=== PATIENT | male | born 1970 | race Caucasian/White ===

== ENCOUNTER 2017-05-04 06:13 | Inpatient (IN) ==
[2017-05-04] MEDS ORDERED: Lidocaine -MPF 1% 2 ML VIAL ID ONE (06:41)
[2017-05-04] MEDS ORDERED: Ertapenem 1,000 MG in Water for inj. (sterile) 10 ML IVP ONE (06:42)
[2017-05-04] MEDS ORDERED: Ringers Solution, Lactated 1,000 ML IVC SCH (06:45)
--- NOTE | 2017-05-04 06:45 | History & Physical Report ---
Date of Encounter: 05/04/17 Time of Encounter: 06:42 24 Hour HP Update - Instructions Instructions: If the History and Physical is less than 30 days old and was completed prior to A.M. admission and or procedure and has NOT been updated on calendar day of procedure please complete this update prior to performing procedure. - Update Patient reports changes in Medical Condition: No Changes in examination, assessment, or condition: No Changes in Medication: No Preop tests/diagnostics Reviewed: Yes Surgery Remains Indicated: Yes Consent for Planned Operative Procedure(s) Verified: Yes Review of Patient reveals the following changes:: plan to place ureteral stents for Dr Rudd surgery. procedure discussed including risks. all questions answered and consent signed. - Pre-Operative Checklist Preoperative Checklist Indicated: Yes Prophylactic Antibiotic Ordered: Yes Home Medications Include Beta Tiki: No Beta Tiki Taken Today (Day of Surgery): No Beta Tiki Taken Yesterday (Day Prior to Surgery): No Is VTE Prophylaxis Indicated?: Yes
[2017-05-04] MEDS ORDERED: *HR* Phenylephrine 10 MG/ML VIAL ONE (06:55)
[2017-05-04] MEDS ORDERED: *HR* Rocuronium Bromide 50 MG/5 ML VIAL ONE ×2 (06:55→10:08)
[2017-05-04] MEDS ORDERED: *HR* Succinylcholine 200 MG/10 ML VIAL IVP ONE (06:55)
[2017-05-04] MEDS ORDERED: Lidocaine -MPF 2% 2 ML VIAL ONE (06:55)
[2017-05-04] MEDS ORDERED: *HR* Propofol 200 MG/20 ML VIAL IVP ONE (06:56)
[2017-05-04] MEDS ORDERED: *HR* Midazolam HCl 2 MG/2 ML VIAL ONE (06:56)
[2017-05-04] MEDS ORDERED: *HR* FentaNYL (PF) 100 MCG/2 ML VIAL ONE (06:56)
[2017-05-04] MEDS ORDERED: Acetaminophen IV 1,000 MG/100 ML INFUS..BTL IVPB ONE (07:05)
[2017-05-04] MEDS ORDERED: Gabapentin 300 MG CAPSULE PO ONE (07:05)
[2017-05-04] MEDS ORDERED: Famotidine 20 MG/2 ML VIAL IVP ONE (07:05)
--- NOTE | 2017-05-04 07:08 | Anesthesia Evaluation PreOp ---
Date of Encounter: 05/04/17 Time of Encounter: 07:00 - Past History Planned Operation: Sigmoid Colectomy Cardiac History: Hyperlipidemia Pulmonary History: Denies Any Significant HX VIDEO TAPE EDITOR History: Denies Any Significant HX Other Medical History: GERD, Other (Obese) Anesthesia History: No Prior Anesthetic Complications Alcohol Use: occasionally Drug use: none Medications and Allergies No Known Home Drugs 05/04/17 [History] 3 Allergy/AdvReac Type Severity Reaction Status Date / Time ciprofloxacin [From Cipro] Allergy Hives Verified 05/04/17 06:50 metronidazole [From Flagyl] Allergy Hives Verified 05/04/17 06:50 - Meds/Allergy Pre-op Review Medications Reviewed: Yes Allergies Reviewed: Yes Beta Blockers on Current Med List: No Anesthesia Results - Labs Laboratory Tests 04/27/17 04/27/17 10:50 10:50 Hgb 14.6 Hct 44.9 Plt Count 251 Sodium 136 Potassium 4.5 BUN 17 Creatinine 0.97 Anesthesia Exam O2 Sat Height 1.75 m Height 1.75 m Height 1.75 m Weight 116.12 kg Weight 116.12 kg Weight 116.12 kg O2 Sat by Pulse Oximetry 97 Vital Signs Temp Pulse Resp BP Pulse Ox 97.9 F 72 18 138/84 97 05/04/17 06:31 05/04/17 06:31 05/04/17 06:31 05/04/17 06:31 05/04/17 06:31 Height: 5'9 Weight: 256 lbs NPO (# of Hours): MN Pain Scale: 0 - HEENT Pupil (Motor): Pupils equal, EOMI Mallampati: II Teeth: Normal Oral Opening: Greater than 3 - VIDEO TAPE EDITOR LOC: Oriented VIDEO TAPE EDITOR Motor: Normal RUE, Normal LUE, Normal RLE, Normal LLE, Normal Face VIDEO TAPE EDITOR Sensory: Normal: RUE, LUE, RLE, LLE, Face - Cardiac Rhythm: Regular Murmur: None JVD: No Carotid Bruit: No - Pulmonary Breath Sounds: bilateral Clear Respiratory Effort: Symmetrical Anesthesia Assess/Plan ASA Score: 2 Modified Hemingway Scale for Level of Consciousness: Cooperative, oriented, and tranquil Anesthetic Plan: General, Regional Monitoring Plan: Standard Monitors Recovery Plan: PACU (Discussed GA, possible Epidural for post op pain control, agrees to proceed)
[2017-05-04] MEDS ORDERED: Ketamine *HR* 500 MG/10 ML MDV ONE (07:10)
[2017-05-04] MEDS ORDERED: ROPIVACAINE HCL/PF 0.5% 30 ML VIAL ONE (07:28)
--- NOTE | 2017-05-04 07:31 | History & Physical Report ---
Date of Encounter: 05/04/17 Time of Encounter: 07:25 24 Hour HP Update - Instructions Instructions: If the History and Physical is less than 30 days old and was completed prior to A.M. admission and or procedure and has NOT been updated on calendar day of procedure please complete this update prior to performing procedure. - Update Patient reports changes in Medical Condition: No Changes in examination, assessment, or condition: No Changes in Medication: No Preop tests/diagnostics Reviewed: Yes Surgery Remains Indicated: Yes Consent for Planned Operative Procedure(s) Verified: Yes - Pre-Operative Checklist Preoperative Checklist Indicated: Yes Prophylactic Antibiotic Ordered: Yes Home Medications Include Beta Tiki: No Beta Tiki Taken Today (Day of Surgery): No Beta Tiki Taken Yesterday (Day Prior to Surgery): No Is VTE Prophylaxis Indicated?: Yes
[2017-05-04] MEDS ORDERED: Ropivacaine/PF 0.2% 500 MG/250 ML INFUS..BTL EP SCH (08:15)
[2017-05-04] MEDS ORDERED: ROPIVACAINE EP SCH (08:30)
[2017-05-04] MEDS ORDERED: INFUS EP SCH (08:30)
--- NOTE | 2017-05-04 09:05 | Anesthesia Procedures ---
Date of Encounter: 05/04/17 Time of Encounter: 07:40 Procedures: Anesthesia - Epidural/Spinal Patient ID/Chart reviewed: Yes Patient examined: Yes Consent Obtained: Yes Supplemental Oxygen: Nasal Cannula Supplemental Oxygen Rate (L/min): 2 Sedation: Versed (mg): 2 Site Prep: Aseptic Technique, Sterile prep and drape, 0.5% Chlorhexidine/Alcohol Patient position: upright Local Anesthetic: Lidocaine 1% Amount of Local Anesthetic used: 4 Touhy Needle Gauge: 18 Touhy Needle Depth (cm): 8 Catheter Depth at Skin (cm): 16 Test Dose (1.5% Lido + Epi): Volume given (mls): 5 Test Dose Result: Negative Loading Dose: Other: Ropivacaine 0.2% 5mL Loading Dose Administered: Thru Catheter Catheter Secured in Place: Tegaderm Interspace Used: Other (L1-2) Blood: No CSF: No Paresthesia: No Procedure: Attempt at L2-3. ALETHEA at 8cm. Catheter advanced and blood noted in tubing. 4mL Test dose - Heart rate increase from 83 to 104. Catheter removed and replaced at L1-2. Vitals + FHT's: VSS throughout.
[2017-05-04] MEDS ORDERED: *HR* Magnesium Sulfate 1 GM/2 ML VIAL ONE (09:08)
[2017-05-04] MEDS ORDERED: Ondansetron 4 MG/2 ML VIAL ONE (09:08)
[2017-05-04] MEDS ORDERED: Dexamethasone 4 MG/ML VIAL ONE (09:08)
[2017-05-04] MEDS ORDERED: EPHEDrine 50 MG/ML VIAL ONE (09:09)
[2017-05-04] MEDS ORDERED: *HR* Promethazine 25 MG/ML VIAL IVP PRN (09:15)
[2017-05-04] MEDS ORDERED: *HR* Meperidine 25 MG/ML SYRINGE IVP PRN (09:15)
[2017-05-04] MEDS ORDERED: Ondansetron 4 MG/2 ML VIAL IVP PRN (09:15)
[2017-05-04] MEDS ORDERED: *HR* HYDROmorphone (PF) 1 MG/ML SYRINGE IVP PRN (09:15)
[2017-05-04] MEDS ORDERED: Naloxone 0.4 MG/ML INJ IVP PRN (09:15)
--- NOTE | 2017-05-04 09:16 | Operative Note ---
Date of procedure: 05/04/17 Pre-op diagnosis: need for a ureteral stent for sigmoidectomy Procedure: cystoscopy with placement of ureteral stent - left. Anesthesia: FRANCOA Surgeon: Sawyer Hahn Estimated blood loss (cc): 0 Specimen: none Condition: stable Disposition: PACU Procedure in Detail: PROCEDURE IN DETAIL: Patient was taken back to the operating room, positioned supine on the operating table. Anesthesia was applied without complication. They were moved into dorsal lithotomy. Careful attention was maintained to cushion all pressure points for patient's safety. They were prepped and draped in sterile fashion. Time-out was performed with the proper patient and procedure. A 21-Andorran rigid cystoscope was inserted into the bladder without difficulty. Systematic examination of bladder revealed no abnormalities. The ureteral orifice was cannulated using a 5-Andorran ureteral Catheter and passed up the ureter without resistance. Hightower was placed after removal of the scope. ureteral cath adaptor was placed to connect to the ureteral cath to the hightower.
[2017-05-04] MEDS ORDERED: Neostigmine Methylsulfate 3 MG/3 ML SYRINGE ONE (10:08)
--- NOTE | 2017-05-04 11:34 | Operative Note ---
Date of procedure: 05/04/17 Pre-op diagnosis: recurrent sigmoid diverticulitis Post-op diagnosis: same Procedure: sigmoid colectomy with stapled colo colonic anastomosis, intra operative rigid sigmoidoscopy, incidental appendectomy, Meckel's Diverticulectomy Complications: none apparent Anesthesia: KENNEDI Surgeon: Regan Degroot Physical Metallurgist Other: LUIS Taylor Estimated blood loss (cc): 100 IV fluids (cc): 1,600 Specimen: sigmoid colon, anastomotic rings, appendix and Meckel diverticulum Condition: stable Disposition: PACU Procedure in Detail: Brief history: 46-year-old male presents today for sigmoid colectomy to address recurrent episodes of sigmoid diverticulitis. The patient presented in acute distress, August 2016, due to acute sigmoid diverticulitis with radiologic evidence of a microperforation and contained pericolic abscess. The patient responded nicely to IV antibiotics which were continued once patient was discharged home home in oral form. Recommendations to consider surgical resection approximately 6 weeks post presentation were were not follow-through. Patient had several episodes of acute diverticulitis in January and February prompting the patient to seek medical and surgical attention. The patient is currently in no acute distress the most recent episode of acute sigmoid diverticulitis appeared to be resolved with antibiotic therapy. Due to this history of recurrent diverticulitis I consulted, Dr Sawyer Hahn, [facility], to place ureteral stents prior to the planned sigmoid resection. I also consulted [facility] for rhoda operative placement epidural catheter. Technique: The patient was brought to the operating room where he was placed supine upon the operating room table. An epidural catheter had been established by [facility] prior to transport of the patient to the OR. The patient was appropriately identified as to person and procedures. The accuracy of this information was confirmed by the procedure team. The patient was then intubated and anesthetized under the supervision of Dr. Gregorio Hardy. Cystoscopy with ureteral stent placement was completed by Dr. Sawyer Hahn. That procedure is available for review in a separate operative report. The patient's position was modified to low lithotomy. The perineum and buttocks were prepped with Betadine. The abdomen prepped with chlorhexidine. Sterile drapes were applied in the usual fashion. The patient was again identified as to person and procedure. A midline incision was made from just above the umbilicus to the pubis. The incision was extended to the fascia. Bleeding points were controlled electrocautery. The fascia was then incised. The abdomen entered atraumatically. Exposure was facilitated by a self-retaining Omni tract retractor. The small bowel was retracted cephalad. The sigmoid colon demonstrated diffuse thickening but no acute inflammation or pericolic abscess. Lateral peritoneal reflection was incised allowing the bowel to be mobilized medially. Dissection was carried into the pelvis where the bowel was transected with the aid of an Ethicon Contour curved cutter stapler. The mesentery was divided with the aid of the Click4Ride Impact Harmonic dissector. Dissection was carried proximally to the distal descending colon where the bowel appeared to be free of any diverticulosis. The bowel was skeletonized and then divided with an Ethicon pursestring device. The sigmoid colon was removed from the field. EEA sounds were used to measure the bowel allowing me to select a Ethicon EEA 29 mm ECS stapler to complete the colocolonic anastomosis. There was enough redundancy in the sigmoid colon that minimal mobilization of the descending colon was necessary to complete a tension-free anastomosis. The 29 mm anvil was placed within the distal descending colon. The pursestring secured. The 29 EEA sounds was again used to measure the Jackie pouch to assure appropriate length for trans-anal stapling. The Ethicon EEA stapler was then inserted rectally and advanced to the staple line of the Jackie pouch. The spike was deployed and the anvil placed on the spike. The stapled colocolonic anastomosis was completed with 2 intact rings removed from the EEA stapler. The pelvis was filled with saline and a rigid sigmoidoscopy completed. The colocolonic anastomosis appeared visually intact and when insufflated with air and no obvious "string of bubbles" was evident within the pelvic fluid. Insufflated air was evacuated and the scope removed. The pelvic fluid was evacuated with a suction device. The surgeon was regowned and gloved to complete the ansa abdominal surgery. The cecum was examined demonstrating a small uninflamed appendix. The mesoappendix was divided with the aid of the Click4Ride Impact Harmonic dissector. The appendix was divided at its junction with the cecum using an Ethicon TX 30 mm stapler (blue cartridge). The appendix was removed from the surgical field. The small bowel was examined from the ileocecal valve to the ligament of Treitz. A Meckel's diverticulum was encountered. Was no acute inflammation, however, several small cysts were evident on the serosa. I opted to transect this lesion using the Ethicon TX 30 mm stapler, again using a blue cartridge. The staple was applied transverse to the long axis of the small bowel. A Meckel's diverticulum was resected. Liver, stomach, spleen appeared grossly normal. Whether abnormalities were detected. Hemostasis appeared to be adequate. The staple lines related to the Meckel's diverticulectomy and the appendectomy were intact. Closure was then accomplished in layers. The peritoneum was closed with a running interlocking 0 Vicryl. The fascia was closed in the midline using interrupted [id number] 0 Vicryl. the subcutaneous tissue was approximated with running 3-0 Vicryl. The skin edges approximated with cyril. A dry sterile dressing was applied. The ureteral stent was removed. Zapata was left in situ. A dry sterile dressing was applied. The patient was taken to recovery. Needle, sponge, and instrument counts were correct at the close of the case. Specimens submitted to pathology: #1 - sigmoid colon and anastomotic rings with the proximal anastomotic ring marked with a silk suture; #2 - the appendix and Meckel's diverticulum. The Meckel's diverticulum was tagged with a silk suture.
[2017-05-04] MEDS ORDERED: Ringers Solution, Lactated 500 ML IVC ONE (11:38)
--- NOTE | 2017-05-04 12:26 | Anesthesia Evaluation Post Op ---
Date of Encounter: 05/04/17 Time of Encounter: 11:30 - Vital Signs Vital Signs: Vital Signs/O2 Sat/Glucose, Most Current Temp Pulse Resp BP Pulse Ox 05/04/17 12:17 71 18 131/91 94 05/04/17 12:07 97.5 F L 77 15 141/83 94 05/04/17 11:57 66 17 140/83 96 05/04/17 11:47 70 17 134/82 96 05/04/17 11:37 98.0 F 74 18 137/87 96 - Lungs Lungs: Clear Ascult./Percussion - Airway Airway: Non-obstructed - Cardiovascular Regular Rate - Mental Status Mental Status: Alert & Oriented, Answers Appropriately - Pain Pain Scale: 0 - Nausea Vomiting Nausea Vomiting: Not Present - Hydration Hydration: Ice chips - Discharge PostOp Status: Transfer Patient to floor
[2017-05-04] MEDS: ROPIVACAINE EP SCH (15:47)
[2017-05-04] MEDS: Ringers Solution, Lactated 1,000 ML IVC SCH ×2 (15:47→23:05)
[2017-05-04] MEDS: INFUS EP SCH (15:47)
[2017-05-04] MEDS ORDERED: *HR* Morphine 2 MG/ML SYRINGE IVP PRN (17:51)
[2017-05-05] MEDS: *HR* HYDROmorphone (PF) 1 MG/ML SYRINGE IVP PRN ×8 (01:52→22:37)
[2017-05-05 05:51] LABS: Basophils % 0.3 %; Hematocrit 40.8 % (37.5-50.1); Hemoglobin 13.3 g/dL (12.9-16.9); Immature Granulocytes % 0.3 % (0-4); Lymphocytes # 1.5 K/mcL (0.6-4.6); Lymphocytes % 16.9 %; Mean Corpuscular HGB Conc 32.6 g/dL (31.6-35.5); Mean Corpuscular Hemoglobin 28.9 pg (28.0-33.3); Mean Corpuscular Volume 88.5 fL (83.0-100.0); Mean Platelet Volume 10.6 fL (9.4-12.4); Monocytes # 0.7 K/mcL (0.0-1.3); Monocytes % 7.5 %; Neutrophils # 6.5 K/mcL (1.6-8.9); Platelet Count 238 K/mcL (140-400); Red Blood Count 4.61 M/mcL (4.19-5.50); Red Cell Distribution Width 13.7 % (11.5-14.5)
[2017-05-05 05:56] LABS: BUN/Creatinine Ratio 17 (6-26); Blood Urea Nitrogen 20 mg/dL (8-26); Calcium 8.5 mg/dL (8.6-10.8); Carbon Dioxide 23 mEq/L (19-29); Chloride 104 mEq/L (98-109); Glucose 113 mg/dL (70-99); Osmolality,Calculated 291 (280-300); Potassium 4.3 mEq/L (3.5-4.5); Sodium 139 mEq/L (136-145); eGFR For African Americans > 60 (> 60); eGFR For Non-African Americans > 60 (> 60)
[2017-05-05] MEDS: Ringers Solution, Lactated 1,000 ML IVC SCH (08:16)
--- NOTE | 2017-05-05 11:53 | General Surgery Progress Note ---
Date of Encounter: 05/05/17 Time of Encounter: 11:45 Subjective Narrative: General Surgery - POD #1 patient c/o pain not relieved / controlled by epidural. Morphine ineffective for breakthrough pain, Dilaudid providing some relief. no N/V. Afebrile, currently 98.9, pulse 88, respirations 16, blood pressure 140/84. Lungs: Clear to auscultation though inspiratory effort reduced due to abdominal pain Cardiac: Regular rate, no appreciable murmurs Abdomen: Soft, quiet; midline incision clean and dry. Extremities: 1+ pitting edema all 4 extremities; no appreciable clubbing or cyanosis. Urine output: 775 mL so far today; slight hematuria, most likely due to cystoscopy and ureteral stent placement preoperatively Labs: White count 8.6, hemoglobin 13.3, hematocrit 40.8; platelet count 238,000 ; differential within normal limits Electrolytes, BUN, creatinine within normal limits Pathology: Pending Impression: Postoperative day 1; status post sigmoid colectomy with stapled colocolonic anastomosis, intraoperative rigid sigmoidoscopy, incidental appendectomy and Meckel's diverticulectomy. Acceptable postoperative status. Insufficient pain control per epidural. Discussed with Dr Hdz, the epidural dosing will be adjusted. Zapata catheter necessary for anticipated bladder dysfunction due to the epidural analgesia. Plan: Continue incentive spirometry; encourage deep breathing and coughing Encourage activity out of bed Allow ice chips sparingly Maintain Zapata until epidural discontinued; continue to monitor I's and O's Anesthesia to adjust epidural dosing Increase Dilaudid for breakthrough pain per my discussion with Dr Hdz Objective Vital Signs - Last 8 Hours Temp Pulse Resp BP Pulse Ox 05/05/17 08:03 98.6 F 79 18 125/84 90 Intake and Output 05/04/17 05/05/17 05/05/17 23:59 07:59 15:59 Intake Total 1000 / 1000 0 / 0 1000 / 1000 Output Total 0 / 0 450 / 450 325 / 325 Balance 1000 / 1000 -450 / -450 675 / 675 Intake: IV Fluids 1000 / 1000 1000 / 1000 Lactated Ringers 1,000 ML @ 100 1000 / 1000 1000 / 1000 mls/hr IVC .Q10H [facility] Rx#: [id number] Oral 0 / 0 0 / 0 Output: Catheter 0 / 0 450 / 450 325 / 325 Other: Meal Dinner NPO NPO Blood Glucose* 118 118 - Labs 05/05/17 04:55 05/05/17 04:55 Diabetes panel 05/05/17 Range/Units 04:55 Sodium 139 (136-145) mEq/L Potassium 4.3 (3.5-4.5) mEq/L Chloride 104 (98-109) mEq/L Carbon Dioxide 23 (19-29) mEq/L BUN 20 (8-26) mg/dL Creatinine 1.15 (0.72-1.25) mg/dL Glucose 113 H (70-99) mg/dL Calcium 8.5 L (8.6-10.8) mg/dL Calcium panel 05/05/17 Range/Units 04:55 Calcium 8.5 L (8.6-10.8) mg/dL Pituitary panel 05/05/17 Range/Units 04:55 Sodium 139 (136-145) mEq/L Potassium 4.3 (3.5-4.5) mEq/L Chloride 104 (98-109) mEq/L Carbon Dioxide 23 (19-29) mEq/L BUN 20 (8-26) mg/dL Creatinine 1.15 (0.72-1.25) mg/dL Glucose 113 H (70-99) mg/dL Calcium 8.5 L (8.6-10.8) mg/dL Adrenal panel 05/05/17 Range/Units 04:55 Sodium 139 (136-145) mEq/L Potassium 4.3 (3.5-4.5) mEq/L Chloride 104 (98-109) mEq/L Carbon Dioxide 23 (19-29) mEq/L BUN 20 (8-26) mg/dL Creatinine 1.15 (0.72-1.25) mg/dL Glucose 113 H (70-99) mg/dL Calcium 8.5 L (8.6-10.8) mg/dL - VTE Documentation of Mechanical Device: Intermittent pneumatic compression device Consult Discharge Plan - Plan Referrals: NONE,PCP [Primary Care Provider] -
[2017-05-05] MEDS: D5% in 0.45% NACL 1,000 ML IVC SCH ×2 (12:39→23:41)
[2017-05-05] MEDS: Pantoprazole 40 MG VIAL IVP SCH (12:41)
[2017-05-05] MEDS: INFUS EP SCH (12:47)
[2017-05-05] MEDS: ROPIVACAINE EP SCH (12:47)
--- NOTE | 2017-05-05 15:20 | Anesthesia Progress Note ---
Date of Encounter: 05/05/17 Time of Encounter: 11:00 Anesthesia Note - Note Note: 05/05/17 15:19 POD 1 S/P Colectomy.Patient complain increase pain this am.VSS. Will increase rate to 8 cc/hr
[2017-05-06] MEDS: *HR* HYDROmorphone (PF) 1 MG/ML SYRINGE IVP PRN ×8 (06:20→20:09)
[2017-05-06] MEDS: Pantoprazole 40 MG VIAL IVP SCH (08:07)
[2017-05-06] MEDS: D5% in 0.45% NACL 1,000 ML IVC SCH ×2 (10:29→20:39)
--- NOTE | 2017-05-06 10:41 | General Surgery Progress Note ---
Date of Encounter: 05/06/17 Time of Encounter: 10:34 Subjective Patient reports: feels better, pain is less Narrative: General Surgery - POD #2 patient feeling better, pain controlled with epidural after Anesthesia adjusted dose. Has required Dilaudid for breakthru pain but significantly less frequently than in the 1st 24 hours Maximum temperature 100.0 through the night - most likely related to inactivity and the patient has been very slow to mobilize and has not been diligent using his spirometer. Pulse 89, respirations 16, blood pressure stable at 143/82. SPO2 on 2 L per nasal cannula at 92-93% Lungs: Clear to auscultation; patient able to inspire deeply without significant abdominal pain Cardiac: Regular rate, no appreciable murmur Abdomen: Slightly distended, active bowel sounds. Patient reports some crampy abdominal pain. No flatus or BM yet Midline incision clean and dry. Urine output 1275 for 05/05/17; 300 mL so far today Impression: Postoperative day 2, status post open sigmoid colectomy with stapled colo colonic anastomosis; intraoperative rigid sigmoidoscopy with incidental appendectomy and Meckel's diverticulectomy. Acceptable postoperative status. Pathology still pending Plan: Encourage activity at a bed Encourage incentive spirometry, coughing and deep breathing Continue epidural, Dilaudid for breakthrough pain Maintain Zapata for duration of the epidural analgesia due to anticipated malfunction of the urinary bladder related to the epidural analgesia. Maintain nothing by mouth with ice chips sparingly until bowel activity improves Check labs in a.m. Objective Vital Signs - Last 8 Hours Temp Pulse Resp BP Pulse Ox 05/06/17 06:51 98.7 F 89 16 143/82 93 05/06/17 03:40 99.6 F 90 18 134/90 92 Intake and Output 05/05/17 05/06/17 05/06/17 23:59 07:59 15:59 Intake Total 1000 / 1000 0 / 0 1000 / 1000 Output Total 500 / 500 300 / 300 Balance 500 / 500 -300 / -300 1000 / 1000 Intake: IV Fluids 1000 / 1000 1000 / 1000 D5% And 0.45% Nacl 1000 Ml Bag 1000 / 1000 1000 / 1000 1,000 ML @ 75 mls/hr IVC . [id number] [facility] Rx#:[id number] Oral 0 / 0 0 / 0 Output: Catheter 500 / 500 300 / 300 Other: Meal NPO # Voids 0 # Bowel Movements 0 Blood Glucose* 115 102 - Labs 05/05/17 04:55 05/05/17 04:55 - VTE Documentation of Mechanical Device: Intermittent pneumatic compression device Consult Discharge Plan - Plan Referrals: NONE,PCP [Primary Care Provider] -
[2017-05-06] MEDS: Ropivacaine/PF 0.2% 200 MG/100 ML INFUS..BTL EP SCH (12:13)
[2017-05-07] MEDS: *HR* HYDROmorphone (PF) 1 MG/ML SYRINGE IVP PRN ×5 (00:34→23:36)
[2017-05-07] MEDS: Ropivacaine/PF 0.2% 200 MG/100 ML INFUS..BTL EP SCH (02:49)
[2017-05-07 06:40] LABS: Basophils % 0.4 %; Eosinophils # 0.2 K/mcL (0.0-0.6); Eosinophils % 3.6 %; Hematocrit 36.8 % (37.5-50.1); Hemoglobin 12.1 g/dL (12.9-16.9); Immature Granulocytes % 0.3 % (0-4); Lymphocytes # 1.4 K/mcL (0.6-4.6); Mean Corpuscular HGB Conc 32.9 g/dL (31.6-35.5); Mean Corpuscular Hemoglobin 29.4 pg (28.0-33.3); Mean Corpuscular Volume 89.5 fL (83.0-100.0); Mean Platelet Volume 10.4 fL (9.4-12.4); Monocytes # 0.5 K/mcL (0.0-1.3); Neutrophils # 4.6 K/mcL (1.6-8.9); Platelet Count 166 K/mcL (140-400); Red Blood Count 4.11 M/mcL (4.19-5.50); Red Cell Distribution Width 13.3 % (11.5-14.5); Segmented Neutrophils % 67.7 %
[2017-05-07 06:47] LABS: BUN/Creatinine Ratio 15 (6-26); Blood Urea Nitrogen 13 mg/dL (8-26); Calcium 8.1 mg/dL (8.6-10.8); Carbon Dioxide 23 mEq/L (19-29); Chloride 103 mEq/L (98-109); Glucose 98 mg/dL (70-99); Osmolality,Calculated 284 (280-300); Potassium 3.9 mEq/L (3.5-4.5); Sodium 137 mEq/L (136-145); eGFR For African Americans > 60 (> 60); eGFR For Non-African Americans > 60 (> 60)
[2017-05-07] MEDS: Pantoprazole 40 MG VIAL IVP SCH (08:57)
[2017-05-07] MEDS: D5% in 0.45% NACL 1,000 ML IVC SCH (10:10)
[2017-05-07] MEDS ORDERED: Acetaminophen 325 MG TABLET PO PRN (10:43)
[2017-05-07] MEDS ORDERED: D5% in 0.45% NACL 1,000 ML IVC SCH (10:43)
--- NOTE | 2017-05-07 10:51 | Anesthesia Procedures ---
Date of Encounter: 05/07/17 Time of Encounter: 10:51 Procedures: Anesthesia - Epidural Rounding Post Op Day #: 3 Procedure: colectomy Pain Control: Adequate Breakthrough Pain Meds: Yes Vital Signs: Selected Entries 05/07/17 08:05 Temperature 98.9 F Pulse Rate 84 Respiratory Rate 18 Blood Pressure 147/84 O2 Sat by Pulse Oximetry 93 Mental Status: awake, alert, responsive Catheter Site Dressing Intact: Yes Erythema: No Pruritus: not present Signs of Infection At Catheter Site: No Plan: Remove Epidural Catheter (Epidural dc'd, Dr Degroot to rx pain meds) Epidural Catheter removed; Tip Intact: Yes (Dr Degroot contacted me and wanted epidural DC'd. )
--- NOTE | 2017-05-07 10:52 | General Surgery Progress Note ---
Date of Encounter: 05/07/17 Time of Encounter: 10:35 Subjective Patient reports: feels better, no flatus, no bowel movement Narrative: General Surgery - POD #3 Patient feeling better; describes adequate pain relief. No flatus or BM however patient describes cramping abdominal pain and audible bowel sounds Afebrile, 98.9; pulse 84, respirations 18, blood pressure 147/84 Lungs: Clear, better inspiratory effort; no abdominal pain with deep inspiration Abdomen: Slightly distended with active bowel sounds. Minimal persistent tenderness as expected 3 days post open exploratory celiotomy. Incision clean and dry. Urine output approximately 1100 ML last 24 hours Extremities: 1+ edema bilateral upper extremities - most likely due to IV fluids; expected to resolve as patient returns to baseline and IV fluids are diminished Pathology: Diverticulosis and acute diverticulitis with focal microabscess formation; pericolic lymph nodes showing no significant pathologic changes Appendix with fibrous obliteration Meckel's diverticulum - no obvious pathology described Laboratories: White count 6.8, hemoglobin 12.1 with hematocrit 36.8; platelet count 166,000 Electrolytes, BUN, creatinine within normal limits. Impression: Postoperative day 3: Status post exploratory ciliotomy sigmoid colectomy with stapled colocolonic anastomosis; intraoperative rigid sigmoidoscopy; incidental appendectomy and Meckel's diverticulectomy. Acceptable postoperative status. Plan: Epidural to be removed today Once epidural removed, discontinue Zapata, initiate VTE prophylaxis Initiate Tylenol 650 mg by mouth every 6 hours as needed for pain, Percocet 5/325 every 4 hours as needed for pain not relieved by Tylenol, and maintain Dilaudid 1 mg IV as needed for breakthrough pain Continue to encourage incentive spirometry and activity bed Objective Vital Signs - Last 8 Hours Temp Pulse Resp BP Pulse Ox 05/07/17 08:05 98.9 F 84 18 147/84 93 05/07/17 04:37 98.7 F 83 17 133/88 92 Intake and Output 05/06/17 05/07/17 05/07/17 23:59 07:59 15:59 Intake Total 1000 / 1000 1000 / 1000 Output Total 400 / 400 600 / 600 250 / 250 Balance 600 / 600 -600 / -600 750 / 750 Intake: IV Fluids 1000 / 1000 1000 / 1000 D5% And 0.45% Nacl 1000 Ml Bag 1000 / 1000 1000 / 1000 1,000 ML @ 75 mls/hr IVC . [id number] [facility] Rx#:[id number] Oral 0 / 0 Output: Urine 400 / 400 350 / 350 Catheter 250 / 250 250 / 250 Other: Meal NPO NPO Percent of Meal Consumed 0% Weight 116.7 kg Blood Glucose* 85 103 Patient Weight 05/07/17 23:59 Weight 116.7 kg - Labs 05/07/17 05:35 05/07/17 05:35 Diabetes panel 05/07/17 Range/Units 05:35 Sodium 137 (136-145) mEq/L Potassium 3.9 (3.5-4.5) mEq/L Chloride 103 (98-109) mEq/L Carbon Dioxide 23 (19-29) mEq/L BUN 13 (8-26) mg/dL Creatinine 0.85 (0.72-1.25) mg/dL Glucose 98 (70-99) mg/dL Calcium 8.1 L (8.6-10.8) mg/dL Calcium panel 05/07/17 Range/Units 05:35 Calcium 8.1 L (8.6-10.8) mg/dL Pituitary panel 05/07/17 Range/Units 05:35 Sodium 137 (136-145) mEq/L Potassium 3.9 (3.5-4.5) mEq/L Chloride 103 (98-109) mEq/L Carbon Dioxide 23 (19-29) mEq/L BUN 13 (8-26) mg/dL Creatinine 0.85 (0.72-1.25) mg/dL Glucose 98 (70-99) mg/dL Calcium 8.1 L (8.6-10.8) mg/dL Adrenal panel 05/07/17 Range/Units 05:35 Sodium 137 (136-145) mEq/L Potassium 3.9 (3.5-4.5) mEq/L Chloride 103 (98-109) mEq/L Carbon Dioxide 23 (19-29) mEq/L BUN 13 (8-26) mg/dL Creatinine 0.85 (0.72-1.25) mg/dL Glucose 98 (70-99) mg/dL Calcium 8.1 L (8.6-10.8) mg/dL - VTE Documentation of Mechanical Device: Intermittent pneumatic compression device Consult Discharge Plan - Plan Referrals: Regan Degroot MD [Non-Partnered Physician] -
[2017-05-07] MEDS: *HR* OxyCODONE/APAP 5/325 TABLET PO PRN ×2 (11:15→16:49)
[2017-05-07] MEDS: *HR* Heparin 5,000 UNIT/ML VIAL SQ SCH ×2 (13:53→23:37)
[2017-05-08] MEDS: *HR* OxyCODONE/APAP 5/325 TABLET PO PRN ×2 (04:06→09:01)
[2017-05-08] MEDS: *HR* Heparin 5,000 UNIT/ML VIAL SQ SCH ×3 (05:30→22:03)
[2017-05-08] MEDS: Pantoprazole 40 MG VIAL IVP SCH (09:01)
[2017-05-08] MEDS ORDERED: *HR* OxyCODONE/APAP 10/325 TABLET PO PRN (11:01)
--- NOTE | 2017-05-08 11:13 | General Surgery Progress Note ---
Date of Encounter: 05/08/17 Time of Encounter: 11:04 Subjective Patient reports: feels better, flatus Narrative: General Surgery - POD#4 Patient feeling well, still has pain, it is partially controlled with Percocet 5/325 Maximum Temp 99.1; pulse 80, respirations 18, blood pressure 126/77. SPO2 on room air 94 Lungs: Clear; no obvious pain in deep inspiration Cardiac: Regular rate, no appreciable murmurs Abdomen: Distended with minimal tenderness; active bowel sounds. Midline incision clean and dry patient has passed flatus extremities: The upper extremity edema has diminished with decreased IV fluids Urine output: Approximately 1600 mL in the last 24 hours Epidural has been removed; Zapata has been discontinued. Pain is partially controlled with Percocet as described above; patient able to void Impression: Postoperative day #4, status post exploratory celiotomy with sigmoid colectomy and stapled colocolonic anastomosis Intraoperative rigid sigmoidoscopy with incidental appendectomy and Meckel's diverticulectomy. Patient doing well. With passage of flatus, will initiate diet - full liquids ordered Zapata removed - patient able to void Increase Percocet 5/325 to Percocet 10/325 but decrease interval from Q4H to Q6H. P-wyatt IV Objective Vital Signs - Last 8 Hours Temp Pulse Resp BP Pulse Ox 05/08/17 07:28 99.1 F 80 18 126/77 94 05/08/17 03:51 99.0 F 93 15 128/80 93 Intake and Output 05/07/17 05/08/17 05/08/17 23:59 07:59 15:59 Intake Total 0 / 0 0 / 0 Output Total 410 / 410 950 / 950 Balance -410 / -410 -950 / -950 Intake: Oral 0 / 0 0 / 0 Output: Urine 410 / 410 950 / 950 Other: Weight 116.9 kg Blood Glucose* 90 Patient Weight 05/08/17 23:59 Weight 116.9 kg - Labs 05/07/17 05:35 05/07/17 05:35 - VTE Documentation of Mechanical Device: Intermittent pneumatic compression device Consult Discharge Plan - Plan Referrals: Regan Degroot MD [Non-Partnered Physician] -
[2017-05-08] MEDS ORDERED: *HR* HYDROmorphone (PF) 1 MG/ML SYRINGE IVP PRN (11:16)
[2017-05-08] MEDS: *HR* OxyCODONE/APAP 10/325 TABLET PO PRN ×2 (15:47→22:03)
[2017-05-09] MEDS: *HR* OxyCODONE/APAP 10/325 TABLET PO PRN (04:07)
[2017-05-09] MEDS: *HR* Heparin 5,000 UNIT/ML VIAL SQ SCH (07:47)
[2017-05-09 10:46] VITALS: BP 133/75
--- NOTE | 2017-05-09 12:28 | General Surgery Progress Note ---
Date of Encounter: 05/09/17 Time of Encounter: 12:13 Subjective Patient reports: no new complaints, feels better, tolerating liquids well Narrative: General Surgery - POD #5 DISCHARGE SUMMARY Patient feeling well; tolerating full liquids. No nausea vomiting, no cramping abdominal pain. Incisional "soreness" as expected; adequate pain relief with Percocet 10/ Patient continues to be afebrile, 98.4; pulse 74, respirations 16, blood pressure 133/75. SPO2 on room air 95% Lungs: Clear bilaterally, no abdominal pain with deep inspiration Acceptable inspiratory effort Cardiac: Regular rate, no appreciable murmurs Abdomen: Incisional tenderness as expected but the incision is clean dry and healing well. No detected fascial defects. Active bowel sounds Urine output 1100 mL in the last 24 hours Extremities: Obvious clubbing, cyanosis, or edema; upper extremity edema has resolved Discharge diagnoses #1 acute diverticulitis with focal abscess - history of recurrent acute diverticulitis #2 diverticulosis #3 pericolic lymph nodes without pathologic changes/no neoplastic disease identified #4 appendix with fibrous obliteration #5 Meckel's diverticulum with no pathologic abnormalities #6 hyperlipidemia #7 tobacco use - smokeless Procedure: Open exploratory celiotomy with sigmoid colectomy and stapled colocolonic anastomosis; intraoperative rigid sigmoidoscopy; incidental appendectomy With Meckel's diverticulectomy Status on discharge: Good Brief history: 46-year-old male who presents to my office with recurrent left lower quadrant abdominal pain. CT abdomen and pelvis, 04/03/17 demonstrated a logic evidence of recurrent sigmoid diverticulitis. The patient's initial episode for which she was hospitalized occurred in August 2016. At the time of presentation, acute sigmoid diverticulitis with micro-perforation was identified. The patient responded to aggressive IV antibiotic therapy with plans to resect the bowel approximately 6 weeks after the acute episode allowing the acute inflammatory changes to subside. This surgery was deferred by the patient. He experienced several episodes of recurrent left lower quadrant abdominal pain describing symptoms in January, February and again in March. He finally returned to my office to consider surgery. This was planned and completed, 05/04/17. Preoperatively the patient had an epidural catheter placed by [facility] and a left ureteral stent placed by [facility]. The ureteral stent was removed at the completion of surgery. The epidural catheter was removed postoperative day 3. The patient's hospital course was fairly unremarkable. The patient had pain in the first 24-48 hours with hypoventilation but this was overcome by adjustments in the epidural as well as medications for breakthrough pain and aggressive pulmonary toilet. Bowel function was evident at postoperative day 3 allowing diet to be initiated. The patient was ultimately discharged home on postoperative day 5 in good physical condition tolerating diet without nausea or vomiting vomiting. At the time of discharge patient was afebrile, dynamically stable, experiencing no cramping abdominal pain. He was passing flatus. Discharge instructions: Patient may consume a regular diet Patient may shower, wash incision with soap and water Activity as tolerated; lifting limit of the less than 20 pounds Follow up my office, Saturday, May 13, 2017 Tylenol, ibuprofen, Motrin, Advil, etc. recommended for pain Prescription for Percocet 10/325, #15, one every 6 hours as needed for pain not relieved by [id number] medication Patient may resume home meds Objective Vital Signs - Last 8 Hours Temp Pulse Resp BP Pulse Ox 05/09/17 10:43 98.4 F 74 16 133/75 95 05/09/17 07:20 97.9 F 67 16 133/81 94 Intake and Output 05/08/17 05/09/17 05/09/17 23:59 07:59 15:59 Intake Total 360 / 360 0 / 0 Output Total 150 / 150 0 / 0 Balance 210 / 210 0 / 0 Intake: Oral 360 / 360 0 / 0 Output: Urine 150 / 150 0 / 0 Other: Meal Dinner Percent of Meal Consumed 100% # Voids 1 # Bowel Movements 0 0 Weight 117.32 kg Patient Weight 05/09/17 23:59 Weight 117.32 kg - Labs 05/07/17 05:35 05/07/17 05:35 - VTE Documentation of Mechanical Device: Intermittent pneumatic compression device Consult Discharge Plan - Plan Referrals: Regan Degroot MD [Non-Partnered Physician] -
--- NOTE | 2017-05-09 12:31 | Discharge Summary ---
Outpatient Proc Discharge Plan - Plan Additional Instructions: Regular diet Patient may shower, wash incision with soap and water Activity as tolerated; lifting limited to less than 20 pounds Follow-up in my office, 05/13/2017 Tylenol, ibuprofen, Motrin, Advil, etc. as needed for pain Prescription for Percocet 10/325, #15, 1 every 6 hours as needed for pain not relieved by [id number] medications Patient may resume home meds Prescriptions: OxyCODONE/APAP 10/325 [Percocet 10/325 MG] 1 each PO Q6H PRN #15 tablet PRN Reason: Pain Home Medications: Acetaminophen [Tylenol] 650 mg PO Q6HR PRN tablet 05/09/17 [Rx] OxyCODONE/APAP 10/325 [Percocet 10/325 MG] 1 each PO Q6H PRN #15 tablet [Rx]
== END 2017-05-09 13:30 | disposition home or self-care (01) | DRG 330 ==
LOC: SAMDAY 06:13 → 3ANU 12:55
PROVIDERS: ADMIT Surgery; ATTEND Surgery

== ENCOUNTER 2017-05-18 04:33 | Inpatient (IN) ==
[2017-05-18] MEDS ORDERED: 0.9 % Sodium Chloride 1,000 ML IVC ONE (04:52)
[2017-05-18] MEDS ORDERED: *HR* HYDROmorphone (PF) 1 MG/ML SYRINGE IVP ONE (04:52)
[2017-05-18] MEDS ORDERED: Ondansetron 4 MG/2 ML VIAL IVP ONE (04:52)
--- NOTE | 2017-05-18 04:56 | Emergency Department Note ---
Disposition Clinical Impression: Abdominal pain Disposition: Still a Patient Condition: Undetermined Forms: ED Satisfaction Letter, Work/School Release General Adult HPI - General Chief complaint: ED Abdominal Pain Stated complaint: had sx two wks ago severe abdominal pain Time Seen by Provider: 05/18/17 04:45 Source: patient, family Limitations: no limitations Nursing Notes Reviewed: Yes Vital Signs Reviewed: Yes - History of Present Illness HPI Narrative: 46-year-old male who reports that on 05/04/17 he had a sigmoidectomy with Dr. Degroot due to diverticulitis with abscess formation. He was discharged . He had been doing well until last night at approximately 11 PM he has developed intermittent generalized abdominal pain. He states that it is poorly localized but it might be an bilateral flanks and epigastrium. It lasts for a few minutes and then almost completely resolves. He denies having any other medical problems. He denies any other surgeries. The last time he ate or drank anything was at 7:30 PM. He denies having fever. He denies any cardiac or pulmonary history. He takes no medications currently. He has vomited a few times of food he ate for dinner. No diarrhea. Last BM was yesterday and was normal. No difficulty urinating. Radiation: non-radiation Pain Severity: moderate Pain Scale: 8 Consistency: intermittent Improves with: nothing Worsens with: nothing Associated symptoms: Reports: denies other symptoms Treatments Prior to Arrival: none - Related Data Previous Rx's Medication Instructions Recorded Acetaminophen [Tylenol] 650 mg PO Q6HR PRN tablet 05/09/17 OxyCODONE/APAP 10/325 [Percocet 1 each PO Q6H PRN #15 tablet 05/09/17 10/325 MG] Allergies Allergy/AdvReac Type Severity Reaction Status Date / Time ciprofloxacin [From Cipro] Allergy Hives Verified 05/04/17 06:50 metronidazole [From Flagyl] Allergy Hives Verified 05/04/17 06:50 All systems ED: reviewed and negative except as stated. Constitutional: Denies: fever ENT ED: Denies: throat pain Cardiovascular: Denies: chest pain Respiratory: Denies: cough Gastrointestinal: Reports: abdominal pain, nausea, vomiting. Denies: diarrhea Genitourinary: Denies: dysuria Musculoskeletal: Denies: back pain Integumentary: Denies: rash Neurological: Denies: headache Past Medical History - Past Medical History Medical history: Reports: GERD, hyperlipidemia, other Surgical history: Reports: no surgical history Psychiatric history: Reports: no psych history - Social History Smoking Status: Never smoker Smokeless Tobacco Status: Yes Alcohol use: Reports: occasionally Drug use: Reports: none Physical Exam - General Limitations: no limitations General appearance: alert, in no apparent distress - Head Head exam: atraumatic - Eye Eye exam: Present: normal appearance, PERRL - ENT ENT exam: normal exam, normal oropharynx - Neck Neck exam: Present: normal inspection - Chest Chest inspection: Present: normal inspection - Respiratory Respiratory exam: Present: normal lung sounds bilaterally. Absent: respiratory distress - Cardiovascular Cardiovascular exam: Present: regular rate, normal rhythm - Abdominal Exam Abdominal exam: Present: soft, tenderness (mild generalized. Unable to localize. Vertical healing incision with some rhoda-incisional blisters. Filled w/ serous fluid. No significant surrounding erythema.) - Extremities Exam Extremities exam: Present: normal inspection - Neurological Exam Neurological exam: Present: alert, oriented X3 - Psychiatric Psychiatric exam: Present: normal affect, normal mood - Skin Skin exam: Present: warm, dry Course Course Narrative: Will obtain a CT w/ IV and PO contrast along with labwork and treat his pain/ nausea. The patient reports that Dr Degroot has asked to be called directly if needed. Vital Signs Temperature 98.2 F 05/18/17 04:40 Pulse Rate 106 05/18/17 04:40 Respiratory Rate 20 05/18/17 04:40 Blood Pressure 151/93 05/18/17 04:40 O2 Sat by Pulse Oximetry 98 05/18/17 04:40 Temperature 98.2 F 05/18/17 04:40 Pulse Rate 106 05/18/17 04:40 Respiratory Rate 20 05/18/17 04:40 Blood Pressure 151/93 05/18/17 04:40 O2 Sat by Pulse Oximetry 98 05/18/17 04:40 Oxygen Delivery Oxygen Delivery Room Air Medical Decision Making - Medical Records Medical records reviewed: Yes I reviewed the patient's medical records. - Lab Data Lab results reviewed: Yes I reviewed the patient's lab results. Result diagrams: 05/18/17 05:18 05/18/17 05:18 Lab Results 05/18/17 05/18/17 05/18/17 Range/Units 05:18 05:18 05:18 WBC 11.8 H (4.3-11.1) K/mcL RBC 5.60 H (4.19-5.50) M/mcL Hgb 16.2 (12.9-16.9) g/dL Hct 49.1 (37.5-50.1) % MCV 87.7 (83.0-100.0) fL MCH 28.9 (28.0-33.3) pg MCHC 33.0 (31.6-35.5) g/dL RDW 13.2 (11.5-14.5) % Plt Count 388 (140-400) K/mcL MPV 10.3 (9.4-12.4) fL Immature Gran % 0.3 (0-4) % Seg Neutrophils % 86.7 % Lymphocytes % 9.6 % Monocytes % 2.4 % Eosinophils % 0.6 % Basophils % 0.4 % Neutrophils # 10.2 H (1.6-8.9) K/mcL Lymphocytes # 1.1 (0.6-4.6) K/mcL Monocytes # 0.3 (0.0-1.3) K/mcL Eosinophils # 0.1 (0.0-0.6) K/mcL Basophils # 0.1 (0.0-0.2) K/mcL Sodium 140 (136-145) mEq/L Potassium 3.9 (3.5-4.5) mEq/L Chloride 103 (98-109) mEq/L Carbon Dioxide 25 (19-29) mEq/L BUN 16 (8-26) mg/dL Creatinine 1.06 (0.72-1.25) mg/dL Est GFR ( Amer) > 60 (> 60) Est GFR (Non-Af Amer) > 60 (> 60) BUN/Creatinine Ratio 15 (6-26) Glucose 129 H (70-99) mg/dL Calculated Osmolality 293 (280-300) Lactic Acid 2.2 (0.5-2.2) mmol/L Calcium 9.6 (8.6-10.8) mg/dL Total Bilirubin 0.5 (0.2-1.2) mg/dL Direct Bilirubin 0.2 (0.0-0.5) mg/dL Indirect Bilirubin 0.3 (0.0-1.2) mg/dL AST 35 H (5-34) Units/L ALT 97 H (0-55) Units/L Alkaline Phosphatase 136 H (38-126) Units/L Serum Total Protein 8.8 H (6.0-8.3) g/dL Albumin 4.1 (3.5-5.0) g/dL Globulin 4.7 H (2.4-3.5) g/dL Albumin/Globulin Ratio 0.9 L (1.1-2.2) Lipase 34 (8-78) Units/L - Radiology Data Radiology results reviewed: Yes I reviewed the patient's radiology results. Attestation Statement - Attestation Attestation: I examined this patient and my medical decision-making was reviewed with the Resident Physician. I agree with the documented findings, disposition and treatment plan as described except to the extent set forth below. Nausea and vomiting post surgery. We will obtain CT scan with IV and by mouth contrast. Additionally we will get basic laboratory analyses. A new nodule be controlled. Final disposition pending results of surgical consultation as well as advanced imaging results.
[2017-05-18 05:25] LABS: Basophils # 0.1 K/mcL (0.0-0.2); Basophils % 0.4 %; Eosinophils # 0.1 K/mcL (0.0-0.6); Eosinophils % 0.6 %; Hematocrit 49.1 % (37.5-50.1); Hemoglobin 16.2 g/dL (12.9-16.9); Immature Granulocytes % 0.3 % (0-4); Lymphocytes # 1.1 K/mcL (0.6-4.6); Lymphocytes % 9.6 %; Mean Corpuscular Hemoglobin 28.9 pg (28.0-33.3); Mean Corpuscular Volume 87.7 fL (83.0-100.0); Mean Platelet Volume 10.3 fL (9.4-12.4); Monocytes # 0.3 K/mcL (0.0-1.3); Monocytes % 2.4 %; Neutrophils # 10.2 K/mcL (1.6-8.9); Platelet Count 388 K/mcL (140-400); Red Cell Distribution Width 13.2 % (11.5-14.5); Segmented Neutrophils % 86.7 %
[2017-05-18 05:41] LABS: Alanine Aminotransferase 97 Units/L (0-55); Albumin 4.1 g/dL (3.5-5.0); Albumin/Globulin Ratio 0.9 (1.1-2.2); Alkaline Phosphatase 136 Units/L (38-126); Aspartate Amino Transferase 35 Units/L (5-34); BUN/Creatinine Ratio 15 (6-26); Bilirubin,Direct 0.2 mg/dL (0.0-0.5); Bilirubin,Indirect 0.3 mg/dL (0.0-1.2); Bilirubin,Total 0.5 mg/dL (0.2-1.2); Blood Urea Nitrogen 16 mg/dL (8-26); Calcium 9.6 mg/dL (8.6-10.8); Carbon Dioxide 25 mEq/L (19-29); Chloride 103 mEq/L (98-109); Globulin 4.7 g/dL (2.4-3.5); Glucose 129 mg/dL (70-99); Lipase 34 Units/L (8-78); Osmolality,Calculated 293 (280-300); Potassium 3.9 mEq/L (3.5-4.5); Sodium 140 mEq/L (136-145); Total Protein 8.8 g/dL (6.0-8.3); eGFR For African Americans > 60 (> 60); eGFR For Non-African Americans > 60 (> 60)
[2017-05-18] MEDS ORDERED: *HR* LORazepam 2 MG/ML VIAL IVP ONE (05:47)
[2017-05-18 05:59] LABS: Bilirubin,Urine Negative (Negative); Blood,Urine Negative (Negative); Clarity,Urine Clear (Clear); Color,Urine Yellow (Yellow); Glucose,Urine (UA) Normal (Normal); Ketones,Urine Negative (Negative); Leukocyte Esterase,Urine Negative (Negative); Nitrite,Urine Negative (Negative); Protein,Urine Negative (Neg-Trace); Specific Gravity,Urine 1.023 (1.010-1.025); Urobilinogen,Urine Normal (Normal)
--- NOTE | 2017-05-18 06:59 | Emergency Department Note ---
Disposition Clinical Impression: Partial small bowel obstruction Abdominal pain Qualifiers: Abdominal location: unspecified location Qualified Code(s): R10.9 - Unspecified abdominal pain Disposition: Admitted As Inpatient Condition: Good Referrals: NONE,PCP [Primary Care Provider] - Forms: ED Satisfaction Letter, Work/School Release General Adult HPI - General Chief complaint: ED Abdominal Pain Stated complaint: had sx two wks ago severe abdominal pain Time Seen by Provider: 05/18/17 04:45 Source: patient, family Limitations: no limitations - History of Present Illness Pain Scale: 8 Improves with: nothing Worsens with: nothing Associated symptoms: Reports: denies other symptoms Treatments Prior to Arrival: none - Related Data Previous Rx's Medication Instructions Recorded Acetaminophen [Tylenol] 650 mg PO Q6HR PRN tablet 05/09/17 OxyCODONE/APAP 10/325 [Percocet 1 each PO Q6H PRN #15 tablet 05/09/17 10/325 MG] Allergies Allergy/AdvReac Type Severity Reaction Status Date / Time ciprofloxacin [From Cipro] Allergy Hives Verified 05/04/17 06:50 metronidazole [From Flagyl] Allergy Hives Verified 05/04/17 06:50 Constitutional: Denies: fever ENT ED: Denies: throat pain Cardiovascular: Denies: chest pain Respiratory: Denies: cough Gastrointestinal: Reports: abdominal pain, nausea, vomiting. Denies: diarrhea Genitourinary: Denies: dysuria Musculoskeletal: Denies: back pain Integumentary: Denies: rash Neurological: Denies: headache Past Medical History - Past Medical History Medical history: Reports: GERD, hyperlipidemia, other Surgical history: Reports: no surgical history Psychiatric history: Reports: no psych history - Social History Smoking Status: Never smoker Smokeless Tobacco Status: Yes Alcohol use: Reports: occasionally Drug use: Reports: none Physical Exam - General Limitations: no limitations General appearance: alert, in no apparent distress Course Course Narrative: Spoke with Dr hilton regarding the partial SBO. He will admit to his service. The patient feels much better and is not vomiting or nauseated. Vital Signs Temperature 98.2 F 05/18/17 04:40 Pulse Rate 106 05/18/17 04:40 Respiratory Rate 20 05/18/17 04:40 Blood Pressure 151/93 05/18/17 04:40 O2 Sat by Pulse Oximetry 98 05/18/17 04:40 Temperature 98.2 F 05/18/17 04:40 Pulse Rate 106 05/18/17 04:40 Respiratory Rate 20 05/18/17 04:40 Blood Pressure 151/93 05/18/17 04:40 O2 Sat by Pulse Oximetry 98 05/18/17 04:40 Oxygen Delivery Oxygen Delivery Room Air Medical Decision Making - Medical Records Medical records reviewed: Yes I reviewed the patient's medical records. - Lab Data Lab results reviewed: Yes I reviewed the patient's lab results. Result diagrams: 05/18/17 05:18 05/18/17 05:18 Lab Results 05/18/17 05/18/17 05/18/17 Range/Units 05:18 05:18 05:18 WBC 11.8 H (4.3-11.1) K/mcL RBC 5.60 H (4.19-5.50) M/mcL Hgb 16.2 (12.9-16.9) g/dL Hct 49.1 (37.5-50.1) % MCV 87.7 (83.0-100.0) fL MCH 28.9 (28.0-33.3) pg MCHC 33.0 (31.6-35.5) g/dL RDW 13.2 (11.5-14.5) % Plt Count 388 (140-400) K/mcL MPV 10.3 (9.4-12.4) fL Immature Gran % 0.3 (0-4) % Seg Neutrophils % 86.7 % Lymphocytes % 9.6 % Monocytes % 2.4 % Eosinophils % 0.6 % Basophils % 0.4 % Neutrophils # 10.2 H (1.6-8.9) K/mcL Lymphocytes # 1.1 (0.6-4.6) K/mcL Monocytes # 0.3 (0.0-1.3) K/mcL Eosinophils # 0.1 (0.0-0.6) K/mcL Basophils # 0.1 (0.0-0.2) K/mcL Sodium 140 (136-145) mEq/L Potassium 3.9 (3.5-4.5) mEq/L Chloride 103 (98-109) mEq/L Carbon Dioxide 25 (19-29) mEq/L BUN 16 (8-26) mg/dL Creatinine 1.06 (0.72-1.25) mg/dL Est GFR ( Amer) > 60 (> 60) Est GFR (Non-Af Amer) > 60 (> 60) BUN/Creatinine Ratio 15 (6-26) Glucose 129 H (70-99) mg/dL Calculated Osmolality 293 (280-300) Lactic Acid 2.2 (0.5-2.2) mmol/L Calcium 9.6 (8.6-10.8) mg/dL Total Bilirubin 0.5 (0.2-1.2) mg/dL Direct Bilirubin 0.2 (0.0-0.5) mg/dL Indirect Bilirubin 0.3 (0.0-1.2) mg/dL AST 35 H (5-34) Units/L ALT 97 H (0-55) Units/L Alkaline Phosphatase 136 H (38-126) Units/L Serum Total Protein 8.8 H (6.0-8.3) g/dL Albumin 4.1 (3.5-5.0) g/dL Globulin 4.7 H (2.4-3.5) g/dL Albumin/Globulin Ratio 0.9 L (1.1-2.2) Lipase 34 (8-78) Units/L Urine Color (Yellow) Urine Clarity (Clear) Urine pH (5.0-8.0) pH Units Ur Specific Brick (1.010-1.025) Urine Protein (Neg-Trace) mg/dL Urine Glucose (UA) (Normal) mg/dL Urine Ketones (Negative) mg/dL Urine Blood (Negative) Urine Nitrite (Negative) Urine Bilirubin (Negative) Urine Urobilinogen (Normal) mg/dL Ur Leukocyte Esterase (Negative) Ur Culture Indicated? (NO) 05/18/17 Range/Units 05:52 WBC (4.3-11.1) K/mcL RBC (4.19-5.50) M/mcL Hgb (12.9-16.9) g/dL Hct (37.5-50.1) % MCV (83.0-100.0) fL MCH (28.0-33.3) pg MCHC (31.6-35.5) g/dL RDW (11.5-14.5) % Plt Count (140-400) K/mcL MPV (9.4-12.4) fL Immature Gran % (0-4) % Seg Neutrophils % % Lymphocytes % % Monocytes % % Eosinophils % % Basophils % % Neutrophils # (1.6-8.9) K/mcL Lymphocytes # (0.6-4.6) K/mcL Monocytes # (0.0-1.3) K/mcL Eosinophils # (0.0-0.6) K/mcL Basophils # (0.0-0.2) K/mcL Sodium (136-145) mEq/L Potassium (3.5-4.5) mEq/L Chloride (98-109) mEq/L Carbon Dioxide (19-29) mEq/L BUN (8-26) mg/dL Creatinine (0.72-1.25) mg/dL Est GFR ( Amer) (> 60) Est GFR (Non-Af Amer) (> 60) BUN/Creatinine Ratio (6-26) Glucose (70-99) mg/dL Calculated Osmolality (280-300) Lactic Acid (0.5-2.2) mmol/L Calcium (8.6-10.8) mg/dL Total Bilirubin (0.2-1.2) mg/dL Direct Bilirubin (0.0-0.5) mg/dL Indirect Bilirubin (0.0-1.2) mg/dL AST (5-34) Units/L ALT (0-55) Units/L Alkaline Phosphatase (38-126) Units/L Serum Total Protein (6.0-8.3) g/dL Albumin (3.5-5.0) g/dL Globulin (2.4-3.5) g/dL Albumin/Globulin Ratio (1.1-2.2) Lipase (8-78) Units/L Urine Color Yellow (Yellow) Urine Clarity Clear (Clear) Urine pH 6.0 (5.0-8.0) pH Units Ur Specific Brick 1.023 (1.010-1.025) Urine Protein Negative (Neg-Trace) mg/dL Urine Glucose (UA) Normal (Normal) mg/dL Urine Ketones Negative (Negative) mg/dL Urine Blood Negative (Negative) Urine Nitrite Negative (Negative) Urine Bilirubin Negative (Negative) Urine Urobilinogen Normal (Normal) mg/dL Ur Leukocyte Esterase Negative (Negative) Ur Culture Indicated? NO (NO) - Radiology Data Radiology results reviewed: Yes I reviewed the patient's radiology results.
[2017-05-18] MEDS ORDERED: *HR* HYDROmorphone (PF) 1 MG/ML SYRINGE IVP PRN (10:20)
[2017-05-18] MEDS ORDERED: Ondansetron 4 MG/2 ML VIAL IVP PRN (10:20)
[2017-05-18] MEDS ORDERED: *HR* Promethazine 25 MG/ML VIAL IVP PRN (10:20)
[2017-05-18] MEDS ORDERED: 0.9 % Sodium Chloride 500 ML IVC ONE (10:22)
[2017-05-18] MEDS ORDERED: 0.9 % Sodium Chloride 1,000 ML IVC SCH (10:30)
--- NOTE | 2017-05-18 17:38 | General Surg History&Physical ---
Date of Encounter: 05/18/17 Time of Encounter: 17:17 History of Present Illness Chief complaint: diffuse cramping abd apin, nausea and vomiting HPI: General Surgery - this is a delayed note Mr. Read is a 46 year old male admitted after presenting to [facility] ED with abrupt onset diffuse, cramping abdominal pain with nausea and vomiting. The patient is 2 weeks s/p sigmoid colectomy with stapled colo colonic anastomosis after presenting with recurrent sigmoid diverticulitis. Patient also admitted 2016 with acute sigmoid diverticulitis with contained perforation 08/2016 but was able to defer surgery until recently due to recurrent left lower quadrant pain with radiologic evidence recurrent diverticulitis. Surgery completed, 05/04, with stapled colo colonic anastomosis with incidental appendectomy and Meckel's diverticulectomy. Rigid intra operative sigmoidoscopy demonstrated an intact colocolonic anastomosis. On presentation to the ED, WBC was minimally elevated, 11.8 with hemoglobin 16.2 hematocrit 49.1. Neutrophils were also elevated at 10.2%. Electrolytes, BUN, creatinine were within normal limits. CT of the abdomen and pelvis completed with oral and IV contrast demonstrated bibasilar atelectasis; short segment of small bowel in the right mid abdomen at the upper limits of normal in terms of caliber with fecalization and an abrupt caliber change in the central upper pelvis adjacent to the staple line. This staple line may pertain to the Meckel's diverticulectomy. The colocolonic anastomosis appears to be intact with no focal fluid collections to suggest abscess. There was no pneumoperitoneum and no adenopathy. The findings were concerning for a SBO for which the patient was admitted for further management and care including possible surgery Past medical history: Obesity, hyperlipidemia, gastroesophageal reflux disease; diverticulosis with recurrent sigmoid diverticulitis, allergic rhinitis Surgical history: Colonoscopy August 2010; sigmoid colectomy with stapled colocolonic anastomosis, incidental appendectomy and Meckel's diverticulectomy, intraoperative rigid sigmoidoscopy 05/04/17 Medications: None at present Allergies: Cipro and metronidazole (related to these medications used for treatment prior diverticulitis) Social history: , lives at home with his children; employed at [employer]; patient admits to using smokeless tobacco Family history: Noncontributory Physical examination: Age-appropriate male, 1.78 m tall, 115.4 kg; BMI 36.5 The patient appears to be in acute distress and admits to feeling poorly due to abdominal pain and chronic nausea. On presentation to the emergency department the patient was afebrile at 98.2 , HR 106, respirations 20, blood pressure 151/93. SPO2 on room air 98% Skin: Warm, no obvious jaundice Lungs: Clear to auscultation, no obvious pain and deep inspiration Cardiac: At the time of my examination the rate was regular, there are no appreciable murmurs Abdomen: Diffusely tender, slightly more localized to the right lower quadrant but no discernible intra-abdominal masses; no rebound. Bowel sounds were present. Extremities, no obvious clubbing, cyanosis or edema. Impression: 46-year-old male approximately 2 weeks status post sigmoid colectomy and stapled colocolonic anastomosis with incidental appendectomy and Meckel's diverticulectomy who presents to [facility] ED with abrupt onset crampy abdominal pain, nausea and vomiting. Findings concerning for small bowel obstruction. This was discussed at length with the patient and his . The patient is unwilling to consider surgery at this time. He also appears to be dehydrated as evidenced by the elevated H&H. Plan: The patient will receive additional IV fluids including fluid bolus of 500 mL normal saline Monitor I&O. Serial abdominal exams. Flat and upright abdomen films will be obtained in several hours to determine whether or not the oral contrast is passing through the small bowel. The patient will be NPO for now possible SBFT If the patient 's clinical status worsens such persistent N/V, increasing abdominal pain - surgical intervention will be strongly recommended. Past Med Surg Social Fam HX - Past Medical History Medical history: GERD, hyperlipidemia, other Psychiatric history: no psych history - Past Surgical History Surgical History: no surgical history - Social History Smoking Status: Never smoker Smokeless Tobacco Status: Yes Alcohol use: occasionally Drug use: none Medications and Allergies OxyCODONE/APAP 10/325 [Percocet 10/325 MG] 1 each PO Q6H PRN #15 tablet [Rx] 3 Allergy/AdvReac Type Severity Reaction Status Date / Time ciprofloxacin [From Cipro] Allergy Hives Verified 05/04/17 06:50 metronidazole [From Flagyl] Allergy Hives Verified 05/04/17 06:50 Review of Systems All systems PM: A 10-system review of systems was performed and is negative for pertinent findings except as documented above in the HPI. General Surgery Exam Initial Vital Signs Temp Pulse Resp BP Pulse Ox 98.2 F 106 20 151/93 98 05/18/17 04:40 05/18/17 04:40 05/18/17 04:40 05/18/17 04:40 05/18/17 04:40 Results - Labs 05/18/17 05:18 05/18/17 05:18 Abnormal lab results WBC 11.8 K/mcL (4.3-11.1) H 05/18/17 05:18 RBC 5.60 M/mcL (4.19-5.50) H 05/18/17 05:18 Neutrophils # 10.2 K/mcL (1.6-8.9) H 05/18/17 05:18 Glucose 129 mg/dL (70-99) H 05/18/17 05:18 POC Glucose 108 (58-89) H 05/18/17 11:08 AST 35 Units/L (5-34) H 05/18/17 05:18 ALT 97 Units/L (0-55) H 05/18/17 05:18 Alkaline Phosphatase 136 Units/L (38-126) H 05/18/17 05:18 Serum Total Protein 8.8 g/dL (6.0-8.3) H 05/18/17 05:18 Globulin 4.7 g/dL (2.4-3.5) H 05/18/17 05:18 Albumin/Globulin Ratio 0.9 (1.1-2.2) L 05/18/17 05:18 All other labs normal.
[2017-05-18] MEDS ORDERED: Acetaminophen 325 MG TABLET PO PRN (17:43)
[2017-05-18] MEDS: Pantoprazole 40 MG VIAL IVP SCH (18:06)
[2017-05-18] MEDS: D5% in 0.45% NACL 1,000 ML IVC SCH (18:06)
[2017-05-19] MEDS: D5% in 0.45% NACL 1,000 ML IVC SCH ×2 (03:36→13:02)
[2017-05-19 06:24] LABS: Alanine Aminotransferase 61 Units/L (0-55); Alkaline Phosphatase 100 Units/L (38-126); Aspartate Amino Transferase 21 Units/L (5-34); BUN/Creatinine Ratio 13 (6-26); Blood Urea Nitrogen 14 mg/dL (8-26); Calcium 8.5 mg/dL (8.6-10.8); Carbon Dioxide 27 mEq/L (19-29); Chloride 105 mEq/L (98-109); Glucose 102 mg/dL (70-99); Osmolality,Calculated 289 (280-300); Potassium 4.2 mEq/L (3.5-4.5); Sodium 139 mEq/L (136-145); eGFR For African Americans > 60 (> 60); eGFR For Non-African Americans > 60 (> 60)
[2017-05-19 06:25] LABS: Basophils # 0.1 K/mcL (0.0-0.2); Basophils % 1.1 %; Eosinophils # 0.2 K/mcL (0.0-0.6); Hematocrit 38.2 % (37.5-50.1); Immature Granulocytes % 0.2 % (0-4); Lymphocytes # 1.8 K/mcL (0.6-4.6); Lymphocytes % 32.2 %; Mean Corpuscular HGB Conc 32.5 g/dL (31.6-35.5); Mean Corpuscular Hemoglobin 29.1 pg (28.0-33.3); Mean Corpuscular Volume 89.7 fL (83.0-100.0); Mean Platelet Volume 10.5 fL (9.4-12.4); Monocytes # 0.5 K/mcL (0.0-1.3); Monocytes % 8.1 %; Neutrophils # 3.2 K/mcL (1.6-8.9); Platelet Count 261 K/mcL (140-400); Red Blood Count 4.26 M/mcL (4.19-5.50); Red Cell Distribution Width 13.3 % (11.5-14.5); Segmented Neutrophils % 55.4 %
[2017-05-19 06:28] LABS: Hemoglobin 12.4 g/dL (12.9-16.9)
[2017-05-19] MEDS: Pantoprazole 40 MG VIAL IVP SCH (08:19)
[2017-05-19] MEDS ORDERED: *HR* OxyCODONE/APAP 5/325 TABLET PO PRN (13:01)
[2017-05-19] MEDS ORDERED: Acetaminophen 325 MG TABLET PO PRN (13:02)
[2017-05-19] MEDS ORDERED: D5% in 0.45% NACL 1,000 ML IVC SCH (13:03)
[2017-05-19] MEDS ORDERED: *HR* HYDROmorphone (PF) 1 MG/ML SYRINGE IVP PRN (13:03)
--- NOTE | 2017-05-19 13:08 | General Surgery Progress Note ---
Date of Encounter: 05/19/17 Time of Encounter: 13:03 Subjective Patient reports: feels better Narrative: General Surgery - feeling much better; patient denies any abdominal pain, no further cramping, no nausea or vomiting Afebrile, currently 98.4; pulse 68, respiratory rate 18, blood pressure 124/ 78. SPO2 in room air 97% Lungs: Clear, no abdominal pain with deep inspiration Cardiac: Regular rate, no appreciable murmurs Abdomen: Soft with active bowel sounds, minimal incisional tenderness. Incision appears to be healing well no appreciable fascial defects Acute abdominal series completed this morning was personally reviewed with [facility]. Findings include: Clear lungs, no pleural effusions or pneumothorax, no focal consolidation or edema. Residual barium is seen within the hepatic flexure. No evidence of intraperitoneal free air with a nonspecific bowel gas pattern. No evidence of obstruction. Impression: Resolution of acute abdominal pain, nausea & vomiting Oral contrast administered for CT has passed through the small bowel to the colon. Apparent resolution of small bowel obstruction. Plan: Allow full liquid diet If no recurrent symptoms, discharge home with continued outpatient follow up Objective Vital Signs - Last 8 Hours Temp Pulse Resp BP Pulse Ox 05/19/17 11:50 98.4 F 68 18 124/78 97 05/19/17 07:19 98.6 F 72 16 122/68 95 Intake and Output 05/18/17 05/19/17 05/19/17 23:59 07:59 15:59 Intake Total 1000 / 1000 1482 / 1482 321 / 321 Output Total 300 / 300 600 / 600 450 / 450 Balance 700 / 700 882 / 882 -129 / -129 Intake: IV Fluids 1000 / 1000 1482 / 1482 321 / 321 D5% And 0.45% Nacl 1000 Ml Bag 1482 / 1482 321 / 321 1,000 ML @ 100 mls/hr IVC .Q10H SHANT Rx#:[id number] Oral 0 / 0 0 / 0 Output: Urine 300 / 300 600 / 600 450 / 450 Other: Meal NPO Stool Size Small Stool Consistency formed Stool Characteristics Normal for Patient # Bowel Movements 1 Weight 115.8 kg Blood Glucose* 84 97 93 Patient Weight 05/19/17 23:59 Weight 115.8 kg - Labs 05/19/17 05:48 05/19/17 05:48 Diabetes panel 05/19/17 Range/Units 05:48 Sodium 139 (136-145) mEq/L Potassium 4.2 (3.5-4.5) mEq/L Chloride 105 (98-109) mEq/L Carbon Dioxide 27 (19-29) mEq/L BUN 14 (8-26) mg/dL Creatinine 1.08 (0.72-1.25) mg/dL Glucose 102 H (70-99) mg/dL Calcium 8.5 L (8.6-10.8) mg/dL AST 21 (5-34) Units/L ALT 61 H (0-55) Units/L Alkaline Phosphatase 100 (38-126) Units/L Calcium panel 05/19/17 Range/Units 05:48 Calcium 8.5 L (8.6-10.8) mg/dL Pituitary panel 05/19/17 Range/Units 05:48 Sodium 139 (136-145) mEq/L Potassium 4.2 (3.5-4.5) mEq/L Chloride 105 (98-109) mEq/L Carbon Dioxide 27 (19-29) mEq/L BUN 14 (8-26) mg/dL Creatinine 1.08 (0.72-1.25) mg/dL Glucose 102 H (70-99) mg/dL Calcium 8.5 L (8.6-10.8) mg/dL Adrenal panel 05/19/17 Range/Units 05:48 Sodium 139 (136-145) mEq/L Potassium 4.2 (3.5-4.5) mEq/L Chloride 105 (98-109) mEq/L Carbon Dioxide 27 (19-29) mEq/L BUN 14 (8-26) mg/dL Creatinine 1.08 (0.72-1.25) mg/dL Glucose 102 H (70-99) mg/dL Calcium 8.5 L (8.6-10.8) mg/dL AST 21 (5-34) Units/L ALT 61 H (0-55) Units/L Alkaline Phosphatase 100 (38-126) Units/L Consult Discharge Plan - Plan Referrals: NONE,PCP [Primary Care Provider] -
[2017-05-19 15:19] VITALS: BP 125/83
--- NOTE | 2017-05-19 19:06 | General Surgery Progress Note ---
Date of Encounter: 05/19/17 Time of Encounter: 19:01 Subjective Patient reports: feels better, tolerating liquids well Narrative: Progress Note/Discharge Summary General Surgery - The patient continues to feel well. He is tolerating full liquids with no abdominal pain, cramping, nausea or vomiting. The patient has moved his bowels though they are semi-liquid to semisolid. The diarrhea may be due to the oral contrast administered for the CT abdomen and pelvis. The patient remains afebrile, hemodynamically stable. He is voicing no complaints. Plan: Discharge home, continue to follow up as outpatient Impression: Abdominal pain nausea and vomiting secondary to radiologic evidence of small bowel obstruction - resolved. Patient currently in good physical condition. History of recurrent/persistent sigmoid diverticulitis; status post sigmoid colectomy with stapled colocolonic anastomosis, intraoperative rigid sigmoidoscopy with incidental appendectomy and Meckel's diverticulectomy 05/04/17. Discharge instructions Regular diet Activity as tolerated, lifting limited to less than 20 pounds Patient may shower, wash incision with soap and water Follow up my office, 05/26/17. Patient call office in a.m. to make this appointment Tylenol, Motrin, Advil, Aleve, as needed for pain Patient still has a few prescribed Percocet which she may use for pain not relieved by [id number] medications Objective Vital Signs - Last 8 Hours Temp Pulse Resp BP Pulse Ox 05/19/17 15:17 98.0 F 62 18 125/83 99 05/19/17 11:50 98.4 F 68 18 124/78 97 Intake and Output 05/19/17 05/19/17 05/19/17 07:59 15:59 23:59 Intake Total 1482 / 1482 518 / 518 409 / 409 Output Total 600 / 600 750 / 750 Balance 882 / 882 -232 / -232 409 / 409 Intake: IV Fluids 1482 / 1482 518 / 518 169 / 169 D5% And 0.45% Nacl 1000 Ml Bag 1482 / 1482 518 / 518 169 / 169 1,000 ML @ 50 mls/hr IVC .Q20H SHANT Rx#:[id number] Oral 0 / 0 0 / 0 240 / 240 Output: Urine 600 / 600 750 / 750 Other: Meal NPO Dinner Percent of Meal Consumed 100% Weight 115.8 kg Blood Glucose* 97 93 Patient Weight 05/19/17 23:59 Weight 115.8 kg - Labs 05/19/17 05:48 05/19/17 05:48 Diabetes panel 05/19/17 Range/Units 05:48 Sodium 139 (136-145) mEq/L Potassium 4.2 (3.5-4.5) mEq/L Chloride 105 (98-109) mEq/L Carbon Dioxide 27 (19-29) mEq/L BUN 14 (8-26) mg/dL Creatinine 1.08 (0.72-1.25) mg/dL Glucose 102 H (70-99) mg/dL Calcium 8.5 L (8.6-10.8) mg/dL AST 21 (5-34) Units/L ALT 61 H (0-55) Units/L Alkaline Phosphatase 100 (38-126) Units/L Calcium panel 05/19/17 Range/Units 05:48 Calcium 8.5 L (8.6-10.8) mg/dL Pituitary panel 05/19/17 Range/Units 05:48 Sodium 139 (136-145) mEq/L Potassium 4.2 (3.5-4.5) mEq/L Chloride 105 (98-109) mEq/L Carbon Dioxide 27 (19-29) mEq/L BUN 14 (8-26) mg/dL Creatinine 1.08 (0.72-1.25) mg/dL Glucose 102 H (70-99) mg/dL Calcium 8.5 L (8.6-10.8) mg/dL Adrenal panel 05/19/17 Range/Units 05:48 Sodium 139 (136-145) mEq/L Potassium 4.2 (3.5-4.5) mEq/L Chloride 105 (98-109) mEq/L Carbon Dioxide 27 (19-29) mEq/L BUN 14 (8-26) mg/dL Creatinine 1.08 (0.72-1.25) mg/dL Glucose 102 H (70-99) mg/dL Calcium 8.5 L (8.6-10.8) mg/dL AST 21 (5-34) Units/L ALT 61 H (0-55) Units/L Alkaline Phosphatase 100 (38-126) Units/L Consult Discharge Plan - Plan Referrals: Regan Degroot MD [Non-Partnered Physician] -
--- NOTE | 2017-05-19 19:09 | Discharge Summary ---
Outpatient Proc Discharge Plan - Plan Additional Instructions: Regular diet Activity as tolerated; lifting limited to less than 20 pounds Patient may shower, wash incision with soap for Patient to contact me/my office immediately should any crampy abdominal pain, nausea or vomiting recur Tylenol, ibuprofen, Motrin, Advil, Aleve as needed for pain Patient has some remaining Percocet 5/325, one every 6 hours to be used for pain not relieved by [id number] medication. No additional prescription provided Follow-up my office, 05/26/17; patient to call office in a.m. to make this appointment. Home Medications: OxyCODONE/APAP 10/325 [Percocet 10/325 MG] 1 each PO Q6H PRN #15 tablet [Rx]
== END 2017-05-19 19:21 | disposition home or self-care (01) | DRG 390 ==
LOC: EMEROO 04:33 → 3ANU 07:04
PROVIDERS: ADMIT Surgery; ATTEND Surgery